=== PATIENT | male | born 1990 | race Caucasian/White ===

== ENCOUNTER 2023-10-01 02:44 | Emergency (ER) | payer SELFPAY ==
[2023-10-01] MEDS ORDERED: KETOROLAC INJ 30 MG/ML VIAL IVP STA (02:59)
[2023-10-01] MEDS ORDERED: ASPIRIN 81 MG CHEWABLE TABLET PO ONE (03:00)
[2023-10-01] MEDS ORDERED: NS IV 1000 ML 1,000 ML IV STA (03:02)
--- NOTE | 2023-10-01 03:02 | ED Chest Pain ---
General Chief Complaint: Chest Pain Stated Complaint: CHEST TIGHTNESS,SOB Source: patient Exam Limitations: no limitations History of Present Illness Date Seen by Provider: Oct 01, 2023 Time Seen by Provider: 02:50 Initial Comments Here with report of chest tightness and shortness of breath that started about 1:30 AM this morning. States he has had intermittent episodes of this over the last 2 weeks. Describes pain that is 2 out of 10 in sharp in the middle upper left side of the chest but also feels a flutter in the left lower chest. Does have history of drinking energy drinks but states he has not had any tonight. He was at work lifting boxes when this happened. Does have family history of heart attack in his father at age 35 and his grandfather had later in life of a heart attack. Denies smoking. Denies drugs. Denies nausea, vomiting, diarrhea or fever. States that he felt a cold sweat to his forehead this morning. Otherwise denies constitutional symptoms or upper respiratory infection symptoms. 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: No NTG SL PERMACULTURE DESIGNER: No Associated Symptoms: No abdominal pain; diaphoresis; No nausea/vomiting, No shortness of breath Allergies and Home Medications Allergies Coded Allergies: No Known Drug Allergies (Unverified , 10/01/23) Patient Home Medication List Home Medication List Reviewed: Yes Review of Systems Review of Systems Constitutional: see HPI; No fever, No weakness EENTM: No Nose Congestion, No Throat Pain Respiratory: Denies Cough, Denies Shortness of Air Cardiovascular: Chest Pain; Denies Edema; Palpitations Gastrointestinal: Constipated; Denies Vomiting Genitourinary: No Symptoms Reported Musculoskeletal: No back pain; muscle pain; No neck pain Skin: No change in color, No lesions Psychiatric/Neurological: Denies Headache, Denies Weakness Past Xuqdeus-Cjphyu-Pzkbox Hx Patient Social History Tobacco Use?: No Use of E-Cig and/or Vaping dev: No Substance use?: No Alcohol Use?: No Past Medical History Surgeries: No Respiratory: No Cardiac: No Neurological: No Genitourinary: No Gastrointestinal: No Musculoskeletal: No Endocrine: No Family Medical History Reviewed Nursing Family Hx Heart Disease Physical Exam Vital Signs Vital Signs - First Documented Capillary Refill : Height, Weight, BMI Height: '" Weight: lbs. oz. kg; BMI Method: General Appearance: No Apparent Distress, WD/WN HEENT: PERRL/EOMI, Pharynx Normal Neck: Non Tender, Supple Respiratory: Lungs Clear, Normal Breath Sounds Cardiovascular: No Murmur, Tachycardia Gastrointestinal: Non Tender, Soft Extremity: Normal Range of Motion, Non Tender Neurologic/Psychiatric: Alert, Oriented x3 Skin: Normal Color, Warm/Dry Progress/Results/Core Measures Results/Orders Lab Results Laboratory Tests Test 10/01/23 03:08 Range/Units White Blood Count 6.1 4.3-11.0 10^3/uL Red Blood Count 5.57 H 4.30-5.52 10^6/uL Hemoglobin 16.7 13.3-17.7 g/dL Hematocrit 49 40-54 % Mean Corpuscular Volume 87 80-99 fL Mean Corpuscular Hemoglobin 30 25-34 pg Mean Corpuscular Hemoglobin Concent 34 32-36 g/dL Red Cell Distribution Width 11.6 10.0-14.5 % Platelet Count 311 130-400 10^3/uL Mean Platelet Volume 9.8 9.0-12.2 fL Immature Granulocyte % (Auto) 0 % Neutrophils (%) (Auto) 71 42-75 % Lymphocytes (%) (Auto) 20 12-44 % Monocytes (%) (Auto) 8 0-12 % Eosinophils (%) (Auto) 1 0-10 % Basophils (%) (Auto) 1 0-10 % Neutrophils # (Auto) 4.3 1.8-7.8 10^3/uL Lymphocytes # (Auto) 1.2 1.0-4.0 10^3/uL Monocytes # (Auto) 0.5 0.0-1.0 10^3/uL Eosinophils # (Auto) 0.1 0.0-0.3 10^3/uL Basophils # (Auto) 0.0 0.0-0.1 10^3/uL Immature Granulocyte # (Auto) 0.0 0.0-0.1 10^3/uL Prothrombin Time 13.0 12.2-14.7 SEC INR Comment 1.0 0.8-1.4 Activated Partial Thromboplast Time 29 24-35 SEC D-Dimer < 0.27 0.00-0.49 UG/ML Sodium Level 140 135-145 MMOL/L Potassium Level 4.0 3.6-5.0 MMOL/L Chloride Level 104 98-107 MMOL/L Carbon Dioxide Level 22 21-32 MMOL/L Anion Gap 14 5-14 MMOL/L Blood Urea Nitrogen 12 7-18 MG/DL Creatinine 1.00 0.60-1.30 MG/DL Estimat Glomerular Filtration Rate 102 BUN/Creatinine Ratio 12 Glucose Level 124 H 70-105 MG/DL Calcium Level 9.8 8.5-10.1 MG/DL Corrected Calcium 8.5-10.1 MG/DL Magnesium Level 2.2 1.6-2.4 MG/DL Total Bilirubin 1.0 0.1-1.0 MG/DL Aspartate Amino Transf (AST/SGOT) 18 5-34 U/L Alanine Aminotransferase (ALT/SGPT) 21 0-55 U/L Alkaline Phosphatase 66 40-136 U/L Myoglobin 32.1 10.0-92.0 NG/ML Troponin I < 0.028 <0.028 NG/ML Total Protein 8.3 H 6.4-8.2 GM/DL Albumin 5.1 H 3.2-4.5 GM/DL Lipase 6 L 8-78 U/L My Orders Orders - NINO ANDERSON MD Ekg Tracing (10/01/23 02:55) Cbc And Automated Diff (10/01/23 02:59) Magnesium (10/01/23 02:59) Chest 1 View, Ap/Pa Only (10/01/23 02:59) Ekg Tracing (10/01/23 02:59) Comprehensive Metabolic Panel (10/01/23 02:59) Myoglobin Serum (10/01/23 02:59) Protime With Inr (10/01/23 02:59) Partial Thromboplastin Time (10/01/23 02:59) O2 (10/01/23 02:59) Monitor-Rhythm Ecg Trace Only (10/01/23 02:59) Lipid Panel (10/02/23 06:00) Ed Iv/Invasive Line Start (10/01/23 02:59) Lipase (10/01/23 02:59) Fibrin Degradation Products (10/01/23 02:59) Troponin I Rankin (10/01/23 02:59) Aspirin Chewable Tablet (Aspirin Chewabl (10/01/23 03:00) Ketorolac Injection (Ketorolac Injection (10/01/23 02:59) Ns Iv 1000 Ml (Ns Iv 1000 Ml) (10/01/23 03:02) Medications Given in ED Current Medications Medications Dose Ordered Sig/Liseth Route Start Time Stop Time Status Last Admin Dose Admin Aspirin 324 mg ONCE ONCE PO 10/01/23 03:00 10/01/23 03:01 DC 10/01/23 03:15 324 MG Vital Signs/I&O 10/01/23 10/01/23 02:52 02:52 Temp 36.9 Pulse 102 Resp 20 B/P (MAP) 145/84 (104) Pulse Ox 98 O2 Delivery Room Air Room Air Progress Progress Note : Progress Note Seen and evaluated. Chest pain protocol initiated. IV, labs including CBC, CMP, coags, troponin, D-dimer and lipase ordered. EKG and chest x-ray ordered. ASA 324 mg p.o. and Toradol 30 mg IV ordered. Normal saline 1 L bolus ordered. Monitor patient. Differential diagnosis includes cardiac event, pulmonary embolism, musculoskeletal pain, electrolyte abnormality, dehydration. 0413: CBC reviewed and shows grossly normal. CMP reviewed and is grossly normal with normal coags and negative troponin and myoglobin and D-dimer is negative. Chest x-ray reviewed by me shows no acute abnormality on my interpretation. Overall patient is doing much better after treatment above. We did discuss options for further evaluation including repeat troponin and another half hour or so to get better clarity given his chest pain and family history and patient feels comfortable and would like to just go home with cardiology follow-up. Given that he has had multiple episodes of pain over the last couple of weeks and has no rise in troponin or myoglobin, this is more comforting but I did discuss that there would be greater surety with repeat troponin. He declined. Patient is pain-free currently. He does have job that would increase the likelihood of musculoskeletal pain and pain was reproducible on exam. I did strongly recommend cardiology follow-up which patient agrees to and he will call Dr. Sen's office in the morning. Discharged home with return precautions. Patient verbalized understanding of instructions and agreement with plan. Initial ECG Impression Date: Oct 01, 2023 Initial ECG Impression Time: 02:58 Initial ECG Rate: 79 Initial ECG Rhythm: Normal Sinus Initial ECG Impression: Normal Comment Sinus rhythm with normal axis. No evidence of ST elevation [place]. Overall normal evaluation. Interpreted by me. Diagnostic Imaging Diagonstic Imaging: Xray Plain Films/CT/US/NM/MRI: chest Comments No acute findings on my interpretation Reviewed: Reviewed by Me Departure Impression Primary Impression: Chest pain Disposition: HOME, SELF-CARE Condition: Improved Departure-Patient Inst. Decision time for Depature: 04:15 Referrals: SUSAN SEN MD NO,LOCAL PHYSICIAN (PCP) Primary Care Physician Patient Instructions: Chest Pain (DC) Add. Discharge Instructions: All discharge instructions reviewed with patient and/or family. Voiced understan moshe. Follow-up with Dr. Sen for recheck and further evaluation. Call his office in the morning and let them know that you were seen in the emergency department for chest pain and we are requesting ED follow-up with him. Avoid energy drinks. Return for chest pain, weakness, breathing problems, vomiting, dizziness, fever or other concerns as needed. NINO ANDERSON MD Oct 01, 2023 03:02
[2023-10-01 03:22] LABS: BASOPHILS % (AUTO) 1 % (0-10); EOSINOPHILS # (AUTO) 0.1 10^3/uL (0.0-0.3); EOSINOPHILS % (AUTO) 1 % (0-10); HEMATOCRIT 49 % (40-54); HEMOGLOBIN 16.7 g/dL (13.3-17.7); LYMPHOCYTES # (AUTO) 1.2 10^3/uL (1.0-4.0); LYMPHOCYTES % (AUTO) 20 % (12-44); MEAN CORPUSCULAR HEMOGLOBIN 30 pg (25-34); MEAN CORPUSCULAR HGB CONC 34 g/dL (32-36); MEAN CORPUSCULAR VOLUME 87 fL (80-99); MEAN PLATELET VOLUME 9.8 fL (9.0-12.2); MONOCYTES # (AUTO) 0.5 10^3/uL (0.0-1.0); MONOCYTES % (AUTO) 8 % (0-12); NEUTROPHILS # (AUTO) 4.3 10^3/uL (1.8-7.8); NEUTROPHILS % (AUTO) 71 % (42-75); PLATELET COUNT 311 10^3/uL (130-400); WHITE BLOOD COUNT 6.1 10^3/uL (4.3-11.0)
[2023-10-01 03:26] LABS: ALBUMIN 5.1 GM/DL (3.2-4.5); CHLORIDE 104 MMOL/L (98-107); SODIUM 140 MMOL/L (135-145)
[2023-10-01 03:28] LABS: CALCIUM 9.8 MG/DL (8.5-10.1)
[2023-10-01 03:29] LABS: GLUCOSE 124 MG/DL (70-105); TOTAL PROTEIN 8.3 GM/DL (6.4-8.2)
[2023-10-01 03:30] LABS: CARBON DIOXIDE 22 MMOL/L (21-32)
[2023-10-01 03:32] LABS: ALKALINE PHOSPHATASE 66 U/L (40-136); GFR ESTIMATED 102; PARTIAL THROMBOPLASTIN TIME 29 SEC (24-35)
[2023-10-01 03:34] LABS: BUN/CREATININE RATIO 12
[2023-10-01 03:35] LABS: ALANINE AMINOTRANSFERASE 21 U/L (0-55); MAGNESIUM 2.2 MG/DL (1.6-2.4)
[2023-10-01 03:36] LABS: LIPASE 6 U/L (8-78)
[2023-10-01 03:37] LABS: FIBRIN DEGRADATION PRODUCTS < 0.27 UG/ML (0.00-0.49)
[2023-10-01 04:18] VITALS: BP 103/72
--- NOTE | 2023-10-01 05:49 | Diagnostic Imaging Report ---
INDICATION: Chest pain FINDINGS: The lungs are clear. No failure, effusion or pneumothorax. IMPRESSION: No acute appearing abnormality. Dictated by: Dictated on workstation # [id number]
== END 2023-10-01 04:30 | disposition home or self-care (01) ==
LOC: EDUNIT# 02:44 → ER 02:49
DX: R07.89 Other chest pain (principal)
CPT/HCPCS: 36415; 71045; 80053; 83690; 83735; 83874; 84484; 85025; 85379; 85610; 85730; 93005; 93041